=== PATIENT | female | born 1990 | race Caucasian/White ===

== ENCOUNTER 2019-07-09 19:42 | Emergency (ER) | payer OTHER, MEDICAID, SELFPAY ==
[2019-07-09 19:43] VITALS: BP 133/75; PULSE 90; RESP 18; TEMP 36.7; O2SAT 96; BMI 33.8
--- NOTE | 2019-07-09 19:58 | RAD_ITS ---
STUDY: X-RAY - SACRUM/COCCYX REASON FOR EXAM: Female, 28 years old. Fall TECHNIQUE: 3 view(s) of the sacrum and coccyx were obtained. COMPARISON: None. FINDINGS: Normal bilateral sacroiliac joints. Normal visualized sacral ala and fused sacral bodies. Normal sacrococcygeal junction with a normal angulation. There is an intrauterine device in place. The presacral soft tissue structures are unremarkable. RAD/Sacrum-Coccyx min 2 Views IMPRESSION: Normal x-rays of the sacrum and coccyx. Electronically Signed: Cy Welch, at 20:26 EST Tel , Service support ,
--- NOTE | 2019-07-09 19:58 | RAD_ITS ---
STUDY: X-RAY - PELVIS AND LEFT HIP REASON FOR EXAM: Female, 28 years old. Fall TECHNIQUE: 3 views of the pelvis and left hip. COMPARISON: None. FINDINGS: There is a non-specific bowel gas pattern. Normal visualized soft tissue structures. There is an intrauterine device noted. Normal bilateral iliac wings, sacroiliac joints and visualized sacrum. Normal bilateral superior and inferior pubic rami. Normal pubic symphysis. Normal bilateral ischial tuberosities. Normal visualized femoral head. Normal acetabulum. Normal hip joint. RAD/HIP, UNI W/ Pelvis 2-3 Views IMPRESSION: Normal x-ray examination of the pelvis and hip. Electronically Signed: Cy Welch, at 20:19 EST Tel , Service support ,
--- NOTE | 2019-07-09 20:28 | ED.VIS.GEN ---
History of Present Illness Chief Complaint: Fall Informant: Patient Onset: Today Context: Gradual Onset Timing: Continuous Current Severity: Moderate Maximum Severity: Moderate Narrative: The patient presents to the emergency department with buttock pain. Patient works as a crisis counselor. She was out evaluating someone at her home. She was walking out and slipped on icy stairs. She fell striking her buttocks and her left hip. She did not strike her head. She denies loss of consciousness. She is still been able to ambulate. She denies other injury. Prior similar symptoms: No Recent Illness/Hospitalization: No Past Medical History - Allergies and Home Meds Allergies/Adverse Reactions: Allergies Penicillins Adverse Reaction (Verified 07/09/19 19:46) Other Primary Care Physician: Geoff Crawford,Out of [Primary Care Provider] - Prior records reviewed: Yes Past Medical History: None Surgical History: no surgical history Review of Systems General: Denies: Chills, Fever, Sweats Eyes: Denies: Visual changes - bilaterally, Diplopia ENT: Denies: Rhinorrhea, Sore throat Cardiovascular: Denies: Chest pain, Palpitations Respiratory: Denies: Dyspnea, Cough, Dyspnea on exertion Gastrointestinal: Denies: Abdominal pain, Nausea, Vomiting, Diarrhea, Melena, Hematochezia Genitourinary: Denies: Dysuria, Hematuria, Frequency Musculoskeletal: Denies: Back pain, Extremity Pain Skin: Denies: Rash, Wounds Neurological: Denies: Headache, Weakness, Numbness Physical Exam Vital Signs/Narrative: Vital Signs Temp Pulse Resp BP Pulse Ox 07/09/19 19:43 98.1 F 90 18 133/75 H 96 Inital Vital Signs reviewed: Yes General: Well nourished, Well developed, No Acute Distress Head: Normocephalic, Atraumatic Eyes: Perrl, EOMI ENT: Moist mucous membranes, No rhinorrhea Neck: Supple, Nontender Cardiovascular: Regular rate, Regular rhythm, No murmurs Respiratory: No distress, CTA bilaterally, Chest nontender Abdomen: Soft, Nontender, Nondistended, Normal bowel sounds Back: Nontender, Normal Inspection Extremities: Nontender, No edema Skin: Normal color, No rash Neurological: Alert, Oriented x3, Cranial nerves II-XII grossly intact, Normal Strength, Normal Sensation Psychological: Normal affect, Normal Mood Diagnostic/Tx/Re-eval Clinical Impression(s) from Imaging Studies Hip/Pelvis X-Ray 07/09/19 19:58 IMPRESSION: Normal x-ray examination of the pelvis and hip. Electronically Signed: Cy Welch, at 20:19 EST Tel , Service support , Sacrum and Coccyx X-Ray 07/09/19 19:58 IMPRESSION: Normal x-rays of the sacrum and coccyx. Electronically Signed: Cy Welch, at 20:26 EST Tel , Service support , - Medical Decision Making The patient did have some mild tenderness over the left hip. There is no rotational deformity. She also has pain in the buttocks. I did obtain plain films of the hip and of the coccyx. These are both unremarkable for acute injury. My suspicion is that she likely has coccygeal contusion. She will continue anti-inflammatories. She will be discharged home. Impression 1. Coccygeal contusion ED Disposition - Plan for ED Patient: Instructions: FALL, Mechanical Referrals: [facility] [GROUP OF PHYSICIANS] -
[2019-07-09 20:43] VITALS: O2SAT 99
[2019-07-09 20:45] VITALS: BP 99/81; PULSE 77; O2SAT 97
== END 2019-07-09 20:50 | disposition home or self-care (01) ==
LOC: ED 20:25
PROVIDERS: Emergency Provider Emergency Medicine
DX: S30.0XXA Contusion of lower back and pelvis, initial encounter (principal); W00.1XXA Fall from stairs and steps due to ice and snow, initial encounter; Y93.01 Activity, walking, marching and hiking; Y92.008 Other place in unspecified non-institutional (private) residence as the place of occurrence of the external cause; Y99.0 Civilian activity done for income or pay
CPT/HCPCS: 72220; 73502; 99282

== ENCOUNTER → 2020-09-25 14:30 | Outpatient (CLI) | payer OTHER, SELFPAY ==
[2020-09-25 13:36] VITALS: BMI 37.9
[2020-09-25 15:20] LABS: Prolactin 8.1 ng/mL; Thyroid Stim Hormone (TSH) 1.33 uIU/mL (0.358-3.74)
== END ==
PROVIDERS: Referring Provider Obstetrics & Gynecology; Visit Provider Obstetrics & Gynecology
DX: N92.0 Excessive and frequent menstruation with regular cycle (principal)
CPT/HCPCS: 36415; 82627; 84146; 84403; 84443; 82626

== ENCOUNTER → 2020-10-01 16:35 | Outpatient (CLI) | payer OTHER, SELFPAY ==
[2020-09-25 13:36] VITALS: BMI 37.9
--- NOTE | 2020-10-01 16:41 | US_ITS ---
STUDY: ULTRASOUND OF THE FEMALE PELVIS - COMPLETE REASON FOR EXAM: Female, 30 years old. HEAVY MENSES AND PAINFUL INTERCOURSE LMP: 09/17/2020 TECHNIQUE: Transabdominal and endovaginal TECHNICAL QUALITY: Adequate. COMPARISON: None. FINDINGS: The uterus is anteverted and is in a midline position. The uterus measures 8.1 x 4.0 x 3.2 cm. Normal uterine cervix. The endometrium measures 7 mm in thickness, and is hyperechoic. There is no demonstrated endometrial mass. There is no demonstrated myometrial mass. The patient does not have an I.U.D. The right ovary is visualized. The right ovary measures 3.8 x 2.5 x 1.9 cm. There is no right ovarian cyst or ovarian mass. There is no visualized right adnexal mass or complex lesion. There is normal arterial and normal venous vascularity. The left ovary is visualized. The left ovary measures 2.0 x 1.1 x 1.6 cm. There is no left ovarian cyst or ovarian mass. There is no visualized left adnexal mass or complex lesion. There is normal arterial and normal venous vascularity. There is mild fluid in the cul-de-sac. US/Transvaginal Non- IMPRESSION: Mild free fluid in the pelvis. Electronically Signed: Roc Crane DO at 19:45 EST Tel [phone], Service support ,
--- NOTE | 2020-10-01 16:41 | US_ITS ---
STUDY: ULTRASOUND OF THE FEMALE PELVIS - COMPLETE REASON FOR EXAM: Female, 30 years old. HEAVY MENSES AND PAINFUL INTERCOURSE LMP: 09/17/2020 TECHNIQUE: Transabdominal and endovaginal TECHNICAL QUALITY: Adequate. COMPARISON: None. FINDINGS: The uterus is anteverted and is in a midline position. The uterus measures 8.1 x 4.0 x 3.2 cm. Normal uterine cervix. The endometrium measures 7 mm in thickness, and is hyperechoic. There is no demonstrated endometrial mass. There is no demonstrated myometrial mass. The patient does not have an I.U.D. The right ovary is visualized. The right ovary measures 3.8 x 2.5 x 1.9 cm. There is no right ovarian cyst or ovarian mass. There is no visualized right adnexal mass or complex lesion. There is normal arterial and normal venous vascularity. The left ovary is visualized. The left ovary measures 2.0 x 1.1 x 1.6 cm. There is no left ovarian cyst or ovarian mass. There is no visualized left adnexal mass or complex lesion. There is normal arterial and normal venous vascularity. There is mild fluid in the cul-de-sac. US/Pelvic (Non ) IMPRESSION: Mild free fluid in the pelvis. Electronically Signed: Roc Crane DO at 19:45 EST Tel [phone], Service support ,
== END ==
PROVIDERS: Referring Provider Obstetrics & Gynecology; Visit Provider Obstetrics & Gynecology
DX: N92.0 Excessive and frequent menstruation with regular cycle (principal)
CPT/HCPCS: 76830; 76856

== ENCOUNTER 2020-11-18 09:45 | Day surgery (SDC) | payer OTHER, SELFPAY ==
[2020-10-15 08:08] VITALS: BMI 39.4
[2020-11-10 09:58] VITALS: BMI 39.3
--- NOTE | 2020-11-18 08:28 | HP.PCM_ITS ---
- Problem List (1) Dysmenorrhea Status: Acute History and Physical Date of Admission: 11/18/20 Intake Vital Signs 11/10/20 Height 5 ft 2 in 11/10/20 Weight: 215 lb 11/10/20 BMI 39.3 11/10/20 BP 124/72 H Intake Visit Reasons: diag. lap. possible fulguration of endometriosis Chief Complaint: pre op Vice [employer] Required: No Is patient in pain?: No Allergies tramadol Allergy (Mild, Verified 11/10/20 09:58) rash Penicillins Adverse Reaction (Verified 11/10/20 09:58) Other Medications Lamotrigine 100 mg PO DAILY 07/09/19 [History Confirmed 11/10/20] bupropion HCl 100 mg tablet,12 hr sustained-release 300 mg PO DAILY ea 09/25/20 [History Confirmed 11/10/20] buspirone 10 mg tablet 10 mg PO BID 09/25/20 [History Confirmed 11/10/20] escitalopram oxalate 10 mg tablet 10 mg PO DAILY 09/25/20 [History Confirmed 11/10/20] Post menopausal: No Patient : No : No PFSH Medical History Depression with anxiety (Acute) Cerebral aneurysm (Acute) Surgical History History of facial surgery (Resolved) S/P nasal surgery (Resolved) S/P tonsillectomy (Resolved) Family History Mother Lupus Grandfather Colon cancer Social History (Updated 11/10/20 @ 10:[address] Sidra Plascencia MD) Smoking Status: Never smoker alcohol intake: current details: occasionally substance use type: does not use what type of physical activity do you participate in: none seatbelt use: always do you feel safe at home: Yes additional social history: Boyfriend-Warren JOY diag. lap. possible fulguration of endometriosis: Details: SILVIO NGUYỄN is a 30 year old who presents for pre-op visit for diagnostic laparoscopy, possible fulguration of endometriosis, possible chromopertubation. Also reports that she noticed a small breast lump in her left breast that started around the time of her last period. Was initially tender, but not currently. Pregancy History 0 Elective abortions Hx Para Spontaneous abortions Hx # Term Pregnancies Ectopic pregnancies Hx # Pregnancies Multiple births # of living children ROS Const Constitutional: Reports system reviewed and no additional complaints, except as docu; denies chills or fever(s) Eyes Eyes: Reports system reviewed and no additional complaints, except as docu ENT ENT: Reports system reviewed and no additional complaints, except as docu Cardio Card: Reports system reviewed and no additional complaints, except as docu; denies chest pain, leg swelling or rapid, pounding, or irregular heartbeat Resp Resp: Reports system reviewed and no additional complaints, except as docu; denies dyspnea GI GI: Reports system reviewed and no additional complaints, except as docu; denies constipation, nausea or vomiting : Reports system reviewed and no additional complaints, except as docu; denies painful urination, pelvic pain, urinary frequency, urinary hesitancy, urinary urgency, vaginal discharge, vaginal odor or vaginal itching Musc Musc: Reports system reviewed and no additional complaints, except as docu Skin Skin/Breast: Reports system reviewed and no additional complaints, except as docu Neuro Neuro: Reports system reviewed and no additional complaints, except as docu Psych Psych: Reports system reviewed and no additional complaints, except as docu Endo Endo: Reports system reviewed and no additional complaints, except as docu Exam Const General: cooperative, healthy appearing, comfortable, well developed, well groomed Orientation: alert, awake, oriented x3 Neck Neck: normal visual inspection, full ROM Chest Breast inspection: normal inspection of the breasts, normal inspection of the axillae Breast palpation: normal palpation of the axillae, no axillary lymphadenopathy, abnormal palpation of the breast (area of firm tissue in right breast in lower outer quadrant, nontender) Resp Effort & Inspection: normal respiratory effort, able to speak in complete sentences, symmetric chest movement Cardio Rate: regular rate Skin General: no rashes or lesions noted, elasticity normal, turgor normal Lesions: no lesions Rashes: no rashes Neuro General: alert, awake, oriented x3 Cranial Nerves: CN's II-XI intact bilaterally, PERRL, EOM intact bilaterally Cognition: normal cognition Speech: speech normal Gait: normal gait Extrem General: normal to inspection, full ROM, no pedal edema Psych Appearance: grossly normal Mental Status: mental status grossly normal Mood: congruent mood Affect: normal affect Speech and Movement: speech and movement normal Attitude: cooperative Thought Process: normal Thought Content: normal Assessment & Plan 1. Pelvic pain R10.2 Plan Presents for pre-op visit for diagnostic laparoscopy, fulguration of endometriosis, possible chromopertubation Having foot surgery on Tuesday No changes to medical history ROS negative Again reviewed risks of surgery and post-op precautions. Consent signed in office. 2. Breast lump N63.0 Plan Area of firmness noted in right lower outer quadrant. Discussed feels more firm Will monitor for next month as started immediately prior to period If still present after one month, will order imaging UPDATE- I have seen the patient and performed any clinically relevant updates to the history and physical exam. Sidra Plascencia MD
[2020-11-18 10:17] LABS: Internal QC Validated? YES +Cl - CLEAR BKGD
[2020-11-18 10:20] LABS: Pregnancy, Urine Negative Negative
[2020-11-18 10:35] VITALS: BP 97/66; PULSE 73; RESP 18; TEMP 36.4; O2SAT 99; BMI 39.9
[2020-11-18] MEDS: Lactated Ringers 1,000 ML 100 ML IV ×2 (10:43→14:46)
--- NOTE | 2020-11-18 11:06 | SUR.PREOP ---
PATIENT MADE AWARE OF DR. COWAN RUNNING BEHIND ON HER CURRENT SURGERY.
--- NOTE | 2020-11-18 13:11 | PCM.DC.TUB ---
Discharge Diet: No Restrictions, - - Increase fluid intake for 48 hours. Discharge Activity: Return to Normal Activity, May Drive - when you are no longer taking narcotic pain medications., May Shower, May Take a Tub Bath - in 7 days., - - Ambulate often the next week after surgery. Additional Activity Instructions:: Nothing in the vagina for the next 5 days. Call your doctor if your incision/area has: Continuous Slow Oozing, Sudden Increased Bleeding, Increased Pain/ Swelling, Increased Redness, Foul Smelling Discharge, Swelling at the incision site Call your doctor if you observe: Fever of 101 or Higher Allergies/Adverse Reactions: Allergies tramadol Allergy (Mild, Verified 11/18/20 10:33) rash Penicillins Adverse Reaction (Verified 11/18/20 10:33) Other DERMATEC Allergy (Uncoded 11/18/20 10:33) Rash Medications to take at Discharge Lamotrigine 100 mg PO DAILY 07/09/19 bupropion HCl 100 mg tablet,12 hr sustained-release 300 mg PO DAILY ea 09/25/20 buspirone 10 mg tablet 10 mg PO .2-3 TIMES DAILY 09/25/20 escitalopram oxalate 10 mg tablet 10 mg PO DAILY 09/25/20 Albuterol Aerosols [Ventolin Aerosols] 2.5 mg INHALATION Q6H PRN PRN 11/11/20 Hydrocodone Bitart/Apap 5-325 [[place] 5/325] 1 tablet PO Q6H PRN PRN 11/18/20 Rivaroxaban [Xarelto] 1 tablet PO DAILY 11/18/20 Primary Care Physician: Care Physician,No Primary [Primary Care Provider] - Test Results: Test results from this visit will be discussed in further detail at your follow-up appointment, if applicable.
[2020-11-18] MEDS: Lubricating Jelly 60 GM Tube 30 GM TOPICAL (13:29)
[2020-11-18] MEDS: Bupivacaine 0.25% 30 ML Vial (13:53)
[2020-11-18 14:07] VITALS: BP 128/91; BP 97/66; PULSE 89; RESP 16; TEMP 36.6; O2SAT 98
--- NOTE | 2020-11-18 14:11 | PCM.OPRPT ---
Problem List (1) Dysmenorrhea Status: Acute Report of Operation Date of Procedure: 11/18/20 Pre-Operative Diagnosis: Dysmenorrhea Post-Operative Diagnosis: Same Surgery/Procedure Performed:: Diagnostic laparoscopy, fulguration of endometriosis, chromopertubation Description of Surgical Findings:: Normal-appearing uterus, cervix, and bilateral fallopian tubes and ovaries. Evidence of endometriosis anteriorly overlying the bladder serosa. Implants of endometriosis posteriorly in the ovarian fossa bilaterally and along the left uterosacral ligament. Bilateral spill on chromotubation. automotive technician instructor: Laina Thomas Type of Anesthesia:: General Specimen's removed: None Estimated Blood Loss (mL): 5 Fluids Replaced: 700 Description of Procedure: The patient was taken to the operating room where general anesthesia was obtained without difficulty. She was prepped and draped in the dorsal lithotomy position with yellofin stirrups. A weighted speculum was placed in the posterior aspect of the vagina and the anterior lip of the cervix was grasped with a single-tooth tenaculum. The uterus was sounded and found to be 8 cm. A Zumi uterine manipulator was placed without difficulty and all other instruments were removed from the vagina. Gloves were changed and attention was directed to the abdomen. The umbilicus was grasped with towel clamps. 10cc of 0.25% marcaine was used to anesthetize the umbilicus. A 5mm incision was made at the base of the umbilicus. A veress needle was inserted without difficulty and intra-abdominal placement was confirmed using the water-drop test. The abdomen was insufflated to 15 mmHg and the veress needle was removed. A 5mm optiview trochar was then placed under direct visualization. Initial survey of the abdominal cavity revealed no evidence of trauma. The above findings were noted. An additional 5mm port was placed in the left lower quadrant. A [place] grasper attached to monopolar energy was used to fulgurate all noted areas of endometriosis. Chromopertubation was then performed and bilateral spill was noted. The procedure was deemed complete. All instruments were removed from the abdominal cavity. The port sites were closed in a simple interrupted fashion using 3-0 monocryl and sterile dressings were placed. The uterine manipulator was removed. The patient was awakened from anesthesia and taken to the recovery room in stable condition. - Complications None apparent - Admit VTE Documentation VTE Present on Admission: No VTE Mechan Device Prophylaxis: SCD's VTE Pharm Prophylaxis ordered?: Yes Multi Select Codes - Urinary/Genital Urinary/Genital CPT Codes: 93077 Chromotubation, 70571 Laproscopic ablation endometriosis
[2020-11-18 14:15] VITALS: BP 130/81; BP 97/66; PULSE 70; RESP 18; O2SAT 97
[2020-11-18 14:30] VITALS: BP 120/75; BP 97/66; PULSE 67; RESP 18; O2SAT 97
[2020-11-18 14:45] VITALS: BP 113/70; BP 97/66; PULSE 67; RESP 18; TEMP 36.6; O2SAT 98
[2020-11-18 15:52] VITALS: BP 120/79; BP 97/66; PULSE 82; RESP 16; TEMP 36.9; O2SAT 100
== END 2020-11-18 15:57 | disposition home or self-care (01) ==
LOC: SDC 09:49 → AC 09:50
PROVIDERS: Anesthesiology; Referring Provider Obstetrics & Gynecology; Visit Provider Obstetrics & Gynecology
PROC: (CPT 49320; principal; 2020-11-18 11:20)
DX: N94.6 Dysmenorrhea, unspecified (principal); F32.9 Major depressive disorder, single episode, unspecified; F41.9 Anxiety disorder, unspecified; Z79.899 Other long term (current) drug therapy
CPT/HCPCS: 00840; 49320; 58350; 58662; 81025; 86850; 86900; 86901; J7120; J2405; Q9968

== ENCOUNTER → 2021-05-06 | Outpatient (CLI) | payer OTHER, SELFPAY ==
[2021-05-06 18:28] LABS: Amphetamine Urine VISTA NEGATIVE (<1000 ng/mL); Barbiturate Urine VISTA NEGATIVE (< 200 ng/mL); Benzodiazepine Urine VISTA NEGATIVE (< 200 ng/mL); Cocaine Urine VISTA NEGATIVE (< 300 ng/mL); Ecstacy Urine VISTA NEGATIVE (< 500 ng/mL); Methadone Urine VISTA NEGATIVE (< 300 ng/mL); PCP Urine VISTA NEGATIVE (< 25 ng/mL); THC Urine VISTA NEGATIVE (< 50 ng/mL); Vista UDS pH Range 6
[2021-05-09 03:07] LABS: Chlamydia By Nucleic Acid AMP Negative (Negative)
[2021-05-09 14:10] LABS: Gonococcus By Nucleic Acid AMP Negative (Negative)
== END | disposition home or self-care (01) ==
PROVIDERS: Visit Provider Obstetrics & Gynecology
DX: O09.90 Supervision of high risk pregnancy, unspecified, unspecified trimester (principal); Z3A.00 Weeks of gestation of pregnancy not specified; Z12.4 Encounter for screening for malignant neoplasm of cervix
CPT/HCPCS: 80307; 87086; 87088; 87491; 87591; 87624; 88175; G0145

== ENCOUNTER → 2021-05-07 15:09 | Outpatient (CLI) | payer OTHER, SELFPAY ==
[2021-05-07 15:45] LABS: Absolute Neutrophil Count 7.4 X10^3/uL (2.0-7.7); Basophil# 0.03 X10^3/uL; Basophil% 0.3 % (0-1); Eosinophil# 0.14 X10^3/uL; Eosinophils% 1.4 % (0-5); Glucose Challenge Gest 1H 50g 108 mg/dL (70-140); Hematocrit 37.6 % (37-47); Hemoglobin 12.2 g/dL (12.0-15.0); Mean Corp Hgb Conc 32.4 g/dL (32-36); Mean Corpuscular Hgb 27.6 pg (27.0-32.0); Mean Corpuscular Volume 85.1 fL (81-99); Monocyte# 0.57 X10^3/uL; Monocyte% 5.7 % (0-10); NRBC Flagged by Analyzer 0 % (0-5); Neutrophil # 7.43 X10^3/uL (2.7-7.7); Neutrophil % 74.3 % (47-70); Platelet Count 256 K/mm3 (150-450); RBC Distribution Width CV 13.6 % (11.6-14.6); RBC Distribution Width SD 42.5 fl (35.1-43.9); Red Blood Count 4.42 M/mm3 (4.2-5.4)
[2021-05-08 10:16] LABS: HIV - WCH Non-Reactive (Nonreactive); Hepatitis B Surface Antigen Non-Reactive (Nonreactive); Hepatitis C Antibody Non-Reactive (Nonreactive); Rubella IgG Reactive (Nonreactive); Syphilis Antibodies Non-reactive
== END ==
PROVIDERS: Referring Provider Obstetrics & Gynecology; Visit Provider Obstetrics & Gynecology
DX: O09.90 Supervision of high risk pregnancy, unspecified, unspecified trimester (principal); Z3A.00 Weeks of gestation of pregnancy not specified
CPT/HCPCS: 36415; 82950; 85025; 86703; 86762; 86780; 86803; 86850; 86900; 86901; 87340